=== PATIENT | female | born 1960 | race Caucasian/White ===

== ENCOUNTER 2023-02-04 15:41 | Emergency (ER) | payer OTHER, BC ==
[2023-02-04] MEDS ORDERED: ACETAMINOPHEN 1000 MG/100 ML BAG IVPB ONE (15:46)
[2023-02-04 16:01] VITALS: BP 116/69; PULSE 72; RESP 20; TEMP 98.2; BMI 23.0
[2023-02-04] MEDS ORDERED: ACETAMINOPHEN INJECTION 100 ML IVPB ONE (16:39)
[2023-02-04 16:45] LABS: INR 1.2 (0.83-1.09); PROTHROMBIN TIME (PATIENT) 13.8 SEC (9.7-13.0)
[2023-02-04 16:52] LABS: ALBUMIN 4.3 g/dl (3.4-5.0); CALCIUM 9.1 mg/dl (8.5-10); CREATININE 0.8 mg/dl (0.55-1.3); TOT PROT 7.4 g/dl (6.4-8.2)
[2023-02-04 17:40] LABS: HEMATOCRIT 37.2 % (32.4-45.2); HEMOGLOBIN 12.3 GM/dL (10.7-15.3); MCH 29.6 pg (25.7-33.7); MCHC 33.1 g/dl (32.0-36.0); MEAN CELL VOLUME 89.5 fl (80-96); MEAN PLT VOLUME 8.4 fl (7.5-11.1); PLATELET COUNT 170 10^3/uL (134-434); RBC 4.16 M/mm3 (3.60-5.2); RDW 13.2 % (11.6-15.6)
[2023-02-04] MEDS ORDERED: IBUPROFEN 600 MG TABLET (FP) PO ONE ×2 (19:48→19:50)
[2023-02-04 20:24] LABS: ANISOCYTOSIS 1+; MACROCYTOSIS 0; OVALOCYTE 1+
== END 2023-02-04 20:19 | disposition home or self-care (01) ==
LOC: FER 15:41
PROC: 3E033NZ Introduction of Analgesics, Hypnotics, Sedatives into Peripheral Vein, Percutaneous Approach (ICD-10-PCS; principal; 2023-02-04)
DX: S09.90XA Unspecified injury of head, initial encounter (principal); S16.1XXA Strain of muscle, fascia and tendon at neck level, initial encounter; S30.1XXA Contusion of abdominal wall, initial encounter; V49.40XA Driver injured in collision with unspecified motor vehicles in traffic accident, initial encounter
CPT/HCPCS: 36415; 70450-TC; 71045-TC-FY; 72125-TC; 73590-TC-RT-FY; 74177-TC; 80053; 85027; 85610; 86850; 86900; 86901; 93005; 99285-25; Q9967